=== PATIENT | male | born 1945 | race Caucasian/White ===

== ENCOUNTER 2019-11-13 11:29 | Outpatient (CLI) | payer MEDICARE, OTHER | END 2019-11-13 23:59 | disposition home or self-care (01) | LOC: CFH 11:29 | PROVIDERS: ATTEND Registered Nurse | DX: Z12.2 Encounter for screening for malignant neoplasm of respiratory organs (principal); Z87.891 Personal history of nicotine dependence; R91.1 Solitary pulmonary nodule; J92.9 Pleural plaque without asbestos; J84.10 Pulmonary fibrosis, unspecified | CPT/HCPCS: G0297 ==